=== PATIENT | female | born 1960 | race Caucasian/White ===

== ENCOUNTER → 2024-03-14 09:59 | Outpatient (REF) | payer OTHER, SELFPAY | LOC: RCS 09:59 | PROVIDERS: ATTENDING PHYSICIAN Internal Medicine Cardiovascular Disease; FAMILY PHYSICIAN Family Medicine | DX: I42.9 Cardiomyopathy, unspecified (principal); T45.1X5D Adverse effect of antineoplastic and immunosuppressive drugs, subsequent encounter | CPT/HCPCS: 93306; 93356 ==

== ENCOUNTER → 2024-05-29 09:36 | Outpatient (REF) | payer OTHER, SELFPAY | LOC: DHSLP 09:36 | PROVIDERS: ATTENDING PHYSICIAN Internal Medicine Cardiovascular Disease; FAMILY PHYSICIAN Family Medicine | DX: G47.19 Other hypersomnia (principal); R06.83 Snoring | CPT/HCPCS: 95800 ==

== ENCOUNTER → 2024-07-19 10:33 | Outpatient (REF) | payer OTHER, SELFPAY | LOC: HWRAD 10:33 | PROVIDERS: ATTENDING PHYSICIAN Family Medicine | DX: R22.42 Localized swelling, mass and lump, left lower limb (principal) | CPT/HCPCS: 73590 ==

== ENCOUNTER → 2025-03-08 08:15 | Outpatient (REF) | payer OTHER, SELFPAY | LOC: RAD 08:15 | PROVIDERS: ATTENDING PHYSICIAN Internal Medicine Hematology & Oncology; FAMILY PHYSICIAN Family Medicine | DX: C50.212 Malignant neoplasm of upper-inner quadrant of left female breast (principal); Z79.811 Long term (current) use of aromatase inhibitors; M25.50 Pain in unspecified joint; M81.0 Age-related osteoporosis without current pathological fracture | CPT/HCPCS: 71260; 74177; 78306; A9503; Q9967 ==

== ENCOUNTER → 2025-03-21 09:09 | Outpatient (REF) | payer OTHER, SELFPAY | LOC: RCS 09:09 | PROVIDERS: ATTENDING PHYSICIAN Internal Medicine Cardiovascular Disease; FAMILY PHYSICIAN Family Medicine | DX: I42.9 Cardiomyopathy, unspecified (principal); T45.1X5D Adverse effect of antineoplastic and immunosuppressive drugs, subsequent encounter | CPT/HCPCS: 93306; 93356 ==

== ENCOUNTER 2025-04-19 06:15 | Day surgery (SDC) | payer OTHER, SELFPAY ==
[2025-04-19 07:06] VITALS: BMI 56.0
[2025-04-19 07:07] VITALS: BP 111/58; BMI 56.0
[2025-04-19 07:20] LABS: Glucose - Point of Care 106 mg/dl (70-99)
[2025-04-19 08:18] VITALS: BP 114/53
[2025-04-19 08:33] VITALS: BP 100/73
[2025-04-19 08:37] VITALS: BP 105/69
== END 2025-04-19 08:43 | disposition home or self-care (01) ==
LOC: SDS 06:15
PROVIDERS: ATTENDING PHYSICIAN Internal Medicine Gastroenterology
DX: Z12.11 Encounter for screening for malignant neoplasm of colon (principal); K63.5 Polyp of colon; K55.20 Angiodysplasia of colon without hemorrhage; K57.30 Diverticulosis of large intestine without perforation or abscess without bleeding; K64.8 Other hemorrhoids; K59.00 Constipation, unspecified; Z86.0100 Personal history of colon polyps, unspecified
CPT/HCPCS: 45380; 82962; 88305